=== PATIENT | female | born 1960 | race Caucasian/White ===

== ENCOUNTER 2021-06-25 20:28 | Emergency (ER) | payer MEDICAID ==
[~2021-06-25] VITALS: Ht 165.1 cm; Wt 65.9 kg
[2021-06-25 22:45] VITALS: BP 127/71
== END 2021-06-25 23:32 | disposition home or self-care (01) ==
LOC: EMS 20:32
DX: S60.932A Unspecified superficial injury of left thumb, initial encounter (principal); F15.10 Other stimulant abuse, uncomplicated; F31.9 Bipolar disorder, unspecified; F17.200 Nicotine dependence, unspecified, uncomplicated; Z90.49 Acquired absence of other specified parts of digestive tract; W26.0XXA Contact with knife, initial encounter
CPT/HCPCS: 99283; 99284